=== PATIENT | male | born 1990 | race Caucasian/White ===

== ENCOUNTER 2024-10-10 06:02 | Emergency (ER) | payer SELFPAY ==
[~2024-10-10] VITALS: Ht 180.3 cm; Wt 104.5 kg
[2024-10-10] MEDS ORDERED: IBUP-1492 PO (08:24)
[2024-10-10] MEDS ORDERED: PERCT PO (08:24)
[2024-10-10 09:08] VITALS: BP 125/89; PULSE 89; RESP 15; O2SAT 99
== END 2024-10-10 09:09 | disposition home or self-care (01) ==
LOC: EMS 06:02
DX: S52.571A Other intraarticular fracture of lower end of right radius, initial encounter for closed fracture (principal); Z72.89 Other problems related to lifestyle; V00.121A Fall from non-in-line roller-skates, initial encounter; Y93.51 Activity, roller skating (inline) and skateboarding; Y92.89 Other specified places as the place of occurrence of the external cause; Y99.8 Other external cause status
CPT/HCPCS: 99283